=== PATIENT | female | born 1945 | race African-American/Black ===

== ENCOUNTER → 2017-03-26 | Day surgery (SDC) | payer MEDICARE, OTHER ==
[~2017-03-26] MED LIST: HYDROmorphone 2 MG/ML VIAL IV; LIDOCAINE 1% PF 2 ML VIAL. ID; LIDOCAINE 2% PF Vial for OR 5 ML VIAL.; MORPHINE SULFATE 2 MG/ML DISP.SYRIN. IV; ONDANSETRON PF 4 MG/2 ML VIAL. IV; PROCHLORPERAZINE 10 MG/2 ML VIAL. IV; PROPOFOL 40 ML IV; fentaNYL PF VIAL 100 MCG/2 ML VIAL IV
[2017-03-26] MEDS: IV RINGERS,LACTATED 1000ML 1,000 ML IV (11:45)
== END | disposition home or self-care (01) ==
LOC: ENDOS 11:05
DX: Z12.11 Encounter for screening for malignant neoplasm of colon (principal); K62.1 Rectal polyp; K64.0 First degree hemorrhoids; K57.30 Diverticulosis of large intestine without perforation or abscess without bleeding; K29.50 Unspecified chronic gastritis without bleeding; I10 Essential (primary) hypertension; E78.5 Hyperlipidemia, unspecified; K31.84 Gastroparesis; Z79.899 Other long term (current) drug therapy; Z80.0 Family history of malignant neoplasm of digestive organs
CPT/HCPCS: 43235; 88305; J2704

== ENCOUNTER → 2019-01-10 | Outpatient (CLI) | payer MEDICARE ==
[2017-03-26 13:09] VITALS: BP 167/75
[~2019-01-10] MED LIST changes: +AMLO2.5T5 PO; +CYCL10TA2 PO; +ESOM40CA PO; +GABA-585 PO; -HYDROmorphone 2 MG/ML VIAL IV; +IBUP-1060 PO; -LIDOCAINE 1% PF 2 ML VIAL. ID; -LIDOCAINE 2% PF Vial for OR 5 ML VIAL.; +LINZESS145 MCG PO; -MORPHINE SULFATE 2 MG/ML DISP.SYRIN. IV; -ONDANSETRON PF 4 MG/2 ML VIAL. IV; -PROCHLORPERAZINE 10 MG/2 ML VIAL. IV; -PROPOFOL 40 ML IV; +SIMV20TA18 PO; +TRIA1TAB3 PO; +VERA180T6 PO; -fentaNYL PF VIAL 100 MCG/2 ML VIAL IV
--- NOTE | 2019-01-10 15:53 | RAD ---
MR of the right shoulder HISTORY: Pain for 2 months. Limited range of motion. TECHNIQUE: Routine multiplanar sequences are obtained. FINDINGS: Acromioclavicular joint is mildly degenerative. Postsurgical changes at the rotator cuff and humeral head compatible with prior rotator cuff surgery. There is some bone hypertrophy and slight fragmentation at the greater tuberosity which appears chronic. Although rotator cuff is partially obscured by artifact, no evidence of significant recurrent supraspinatus or infraspinatus tendon rupture or retraction. Subscapularis tendinosis with some possible mild interstitial tearing. Small subdeltoid bursal effusion. This fluid also enters the acromioclavicular joint. Mild degenerative changes at the glenohumeral joint. Mild heterogeneity of signal within the superior labrum compatible with degeneration. No evidence of labral detachment or separation. Biceps tendinosis with partial tearing. Slight medial subluxation. No acute fracture. No aggressive bone destruction. No acute soft tissue abnormality. IMPRESSION: 1. Postsurgical changes of the rotator cuff with tendinosis. No significant recurrent supraspinatus or infraspinatus tendon rupture. Probable mild interstitial tearing of the subscapularis tendon. 2. Superior labral degeneration. 3. Biceps tendinosis with partial tearing and slight medial subluxation. Electronically signed by: Rafael Noland MD (01/10/2019 3:50 PM) [facility]
== END | disposition home or self-care (01) ==
LOC: MRI 14:20
PROVIDERS: ATTEND Orthopaedic Surgery
DX: S46.211A Strain of muscle, fascia and tendon of other parts of biceps, right arm, initial encounter (principal); M75.21 Bicipital tendinitis, right shoulder; M89.38 Hypertrophy of bone, other site; X58.XXXA Exposure to other specified factors, initial encounter; Y93.89 Activity, other specified; Y92.89 Other specified places as the place of occurrence of the external cause; Y99.8 Other external cause status
CPT/HCPCS: 73221

== ENCOUNTER 2019-02-08 07:15 | Day surgery (SDC) | payer MEDICARE ==
[~2019-02-08] VITALS: Ht 165.1 cm; Wt 68.9 kg
[~2019-02-08 07:15] MED LIST changes: +HYDROmorphone 2 MG/ML VIAL IV PRN; +IV RINGERS,LACTATED 1000ML 1,000 ML IV SCH; +LIDOCAINE 1% PF 2 ML VIAL. ID PRN; +MORPHINE SULFATE 2 MG/ML VIAL. IV PRN; +ONDANSETRON PF 4 MG/2 ML VIAL. IV PRN; +PROCHLORPERAZINE 10 MG/2 ML VIAL. IV PRN; -SIMV20TA18 PO; +SIMV20TA3 PO; +fentaNYL PF VIAL 100 MCG/2 ML VIAL IV PRN
--- NOTE | 2019-02-08 08:24 | EKG ---
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
[2019-02-08] MEDS ORDERED: ROCURONIUM 50 MG/5 ML VIAL. ONE (09:03)
[2019-02-08] MEDS ORDERED: fentaNYL PF VIAL 100 MCG/2 ML VIAL ONE ×3 (09:03→13:19)
[2019-02-08] MEDS ORDERED: LIDOCAINE 2% PF 5 ML VIAL. ONE (09:04)
[2019-02-08] MEDS ORDERED: ONDANSETRON PF 4 MG/2 ML VIAL. ONE (09:04)
[2019-02-08] MEDS ORDERED: GLYCOPYRROLATE 1 MG/5 ML VIAL. ONE (09:04)
[2019-02-08] MEDS ORDERED: DEXAMETHASONE SOD PHOS 4 MG/ML VIAL ONE (09:04)
[2019-02-08] MEDS ORDERED: NEOSTIGMINE METHYLSULFATE 5 MG/5 ML SYRINGE. ONE (09:04)
[2019-02-08] MEDS ORDERED: PROPOFOL 20 ML IV ONE (09:04)
[2019-02-08] MEDS ORDERED: EPINEPHrine VIAL 30 MG/30 ML VIAL ONE (10:42)
[2019-02-08] MEDS ORDERED: PHENYLEPHRINE 10 MG/ML VIAL. ONE (11:28)
[2019-02-08] MEDS ORDERED: BUPIVACAINE MPF 0.5% 30 ML VIAL. ONE (11:50)
--- NOTE | 2019-02-08 12:54 | DISCH ---
DISCHARGE INSTRUCTIONS Condition on Discharge Condition on Discharge: Stable Activity After Discharge Activity Instructions for Disc: Other, see below (sling for comfort to right shoulder and fine motor use of right hand with arm at side may eat do hair no lifting pushing pulling) Diet after Discharge Diet after Discharge: Regular Wound Incision Care Wound/Incision Care: Change dressing (remove dressing in 2 days may then shower) Contacting the after DC Call your doctor for: Concerns you may have Follow-Up Follow up with: Dr. Connor 1 week XIN CONNOR MD Feb 08, 2019 12:54
--- NOTE | 2019-02-08 13:01 | PDOC4 ---
Operative Note Operative Note Date of surgery: 02/08/2019 Preoperative diagnosis: Right shoulder pain with suspected biceps fraying, history of previous rotator cuff repair Postoperative diagnosis: Same with severe biceps fraying intact rotator cuff repair with only partial undersurface fraying and multiple loose bodies glenohumeral joint Operative procedure: Right shoulder arthroscopy removal multiple loose bodies and open biceps tenodesis Surgeon: Nikolas Assist: Mylene Anesthesia: Gen. Estimated blood loss: 10 mL Complications: None Operative indications: Please see my orthopedic clinic note for detailed operative indications and note that we covered addressing any pathological conditions found including the possibility of planned biceps tenodesis addressing any rotator cuff pathology or other pathology noted at the time of the procedure. I did emphasize I can't undo any degenerative condition in the shoulder and any ongoing symptoms from that would need to be managed symptomatically. There is a possibility of infection nerve or blood vessel damage medical or other anesthetic complications among others all her questions were answered she wishes to proceed with surgical evaluation and treatment. Operative text: Patient was identified procedure verified patient placed in the supine position on the operating table. After adequate amounts of general anesthesia were administered she was placed in the beachchair position and all bony prominences were well-padded and the right shoulder was prepped and draped in standard sterile fashion with the spider arm ann. After timeout was performed patient procedure identified and verified a standard posterior portal was established an anterior portal established using spinal needle localization and the shoulder joint was systematically examined. She was noted to have mild fraying of the undersurface of the supraspinatus but otherwise an intact rotator cuff repair after the significant fraying of the biceps anchor at the superior labrum were debrided back to stable tissue using arthroscopic shaver as well as the undersurface tear only partial thickness of the supraspinatus was debrided. Subscapularis appeared intact biceps was very frayed involving well over 25% of the tendon substance biceps tendon was tagged and tenotomized. She also had multiple loose bodies present in the inferior recess of the glenohumeral joint which were retrieved through the anterior portal and open incision was made anteriorly to complete the biceps tenodesis in the bicipital groove with a 2.9 juggernaut Biomet anchor. Biceps contour was maintained thorough irrigation carried out normal saline solution closure accomplished with buried Vicryl suture and subcuticular Monocryl sterile dressings were applied patient was placed in a sling extubated returned recovery room in stable condition having tolerated procedure well XIN CHAVARRIA MD Feb 08, 2019 13:01
[2019-02-08 13:26] VITALS: BP 164/70
== END 2019-02-08 14:00 | disposition home or self-care (01) ==
LOC: SURG 07:15
PROVIDERS: ATTEND Orthopaedic Surgery
DX: M66.321 Spontaneous rupture of flexor tendons, right upper arm (principal); M24.011 Loose body in right shoulder; I10 Essential (primary) hypertension; E78.00 Pure hypercholesterolemia, unspecified; K21.9 Gastro-esophageal reflux disease without esophagitis; K64.9 Unspecified hemorrhoids; H40.9 Unspecified glaucoma; F19.90 Other psychoactive substance use, unspecified, uncomplicated; F17.210 Nicotine dependence, cigarettes, uncomplicated; Z87.39 Personal history of other diseases of the musculoskeletal system and connective tissue; Z98.890 Other specified postprocedural states; Z98.42 Cataract extraction status, left eye; Z98.41 Cataract extraction status, right eye; Z90.710 Acquired absence of both cervix and uterus; Z72.89 Other problems related to lifestyle; Z96.1 Presence of intraocular lens
CPT/HCPCS: 23430; 29819; 93005; J0171; J0690; J1100; J2001; J2405; J2704; J2710; J3010; J3490; A7015; C1713; J7120

== ENCOUNTER 2019-10-25 00:53 | Inpatient (IN) | payer MEDICARE ==
[~2019-10-25] VITALS: Ht 165.1 cm; Wt 68.0 kg
[~2019-10-25 00:53] MED LIST changes: -HYDROmorphone 2 MG/ML VIAL IV PRN; -IV RINGERS,LACTATED 1000ML 1,000 ML IV SCH; -LIDOCAINE 1% PF 2 ML VIAL. ID PRN; -MORPHINE SULFATE 2 MG/ML VIAL. IV PRN; -ONDANSETRON PF 4 MG/2 ML VIAL. IV PRN; -PROCHLORPERAZINE 10 MG/2 ML VIAL. IV PRN; +SIMV20TA18 PO; -SIMV20TA3 PO; -fentaNYL PF VIAL 100 MCG/2 ML VIAL IV PRN
[2019-10-25 01:21] LABS: BILIRUBIN,URINE NEGATIVE (NEG); CLARITY,URINE CLEAR; COLOR,URINE YELLOW; NITRITE,URINE NEGATIVE (NEG); PH,URINE 7.5 (<5.0-8.0); PROTEIN,URINE NEGATIVE (NEG-TRACE); UROBILINOGEN,URINE 0.2 mg/dL (0.2 mg/dL)
[2019-10-25 01:25] LABS: AMORPHOUS SEDIMENT,UR PRESENT /HPF; BACTERIA,URINE 0 /HPF (0-FEW); RBC,URINE OCC /HPF (0-2); SQUAMOUS EPITHELIAL CELL,UR FEW /LPF; WBC,URINE OCC /HPF (0-4)
[2019-10-25 01:28] LABS: BASO # 0.1 x10^3/uL (0.0-0.2); BASO % 1 % (0-3); EOS % 0 % (0-3); HEMATOCRIT 41.8 % (36.0-47.0); HEMOGLOBIN 14.5 g/dL (12.0-15.5); LYMPH # 2.1 x10^3/uL (1.0-4.8); LYMPH % 26 % (24-48); MEAN CORPUSCULAR HEMOGLOBIN 30 pg (25-35); MEAN CORPUSCULAR HGB CONC 35 g/dL (31-37); MEAN CORPUSCULAR VOLUME 88 fL (79-100); MONO # 0.4 x10^3/uL (0.0-1.1); MONO % 5 % (0-9); NEUT # 5.5 x10^3/uL (1.8-7.7); NEUT % 67 % (31-73); PLATELET COUNT 300 x10^3/uL (140-400); RED BLOOD COUNT 4.78 x10^6/uL (3.50-5.40); RED CELL DISTRIBUTION WIDTH 13.7 % (11.5-14.5); WHITE BLOOD COUNT 8.1 x10^3/uL (4.0-11.0)
[2019-10-25] MEDS ORDERED: MECLIZINE HCL 12.5 MG TABLET. PO ONE (01:30)
[2019-10-25] MEDS ORDERED: diazePAM 2 MG TABLET PO ONE (01:30)
--- NOTE | 2019-10-25 01:31 | PHYS DOC ---
General Adult EDM: Chief Complaint: DIZZY/LIGHT HEADED HPI: HPI: Patient is a 74 year old female who presents to the ED with a chief complaint of dizziness. Patient states that she went to bed and when she woke up she sat up in her bed and felt like the whole room was spinning. Patient also had episode of vomiting and felt lightheaded. Patient denies headache, chest pain, fever, chills, shortness of breath. Patient denies previous symptoms like this. Review of Systems: Review of Systems: Constitutional: Denies fever or chills. [] Eyes: Denies change in visual acuity. [] HENT: Denies nasal congestion or sore throat. [] Respiratory: Denies cough or shortness of breath. [] Cardiovascular: Denies chest pain or edema. [] GI: Denies abdominal pain, nausea, vomiting, bloody stools or diarrhea. [] : Denies dysuria. [] Neurologic: Complains of dizziness and vertigo-like symptoms Heart Score: Risk Factors: Risk Factors: DM, Current or recent (<one month) smoker, HTN, HLP, family history of CAD, obesity. Risk Scores: Score 0 - 3: 2.5% MACE over next 6 weeks - Discharge Home Score 4 - 6: 20.3% MACE over next 6 weeks - Admit for Clinical Observation Score 7 - 10: 72.7% MACE over next 6 weeks - Early Invasive Strategies Current Medications: Current Medications Medications (Trade) Dose Ordered Sig/Josh Start Time Stop Time Status Last Admin Dose Admin Diazepam (Valium) 2 mg 1X ONCE 10/25/19 01:30 10/25/19 01:31 Meclizine HCl (Antivert) 25 mg 1X ONCE 10/25/19 01:30 10/25/19 01:31 Allergies: Allergies: Allergies Coded Allergies Type Severity Reaction Last Updated Verified No Known Drug Allergies 02/04/19 No Physical Exam: PE: Constitutional: Well developed, well nourished, no acute distress, non-toxic appearance. HENT: Normocephalic, atraumatic Eyes: EOMI Neck: Normal range of motion, Supple Cardiovascular:Heart rate regular rhythm Lungs & Thorax: Bilateral breath sounds clear to auscultation [] Abdomen: Bowel sounds normal, soft, no tenderness Extremities: No tenderness, ROM intact Neurologic: Alert and oriented X 3, no focal neuro deficits on exam Current Patient Data: Labs: Laboratory Tests Test 10/25/19 01:10 Urine Collection Type Unknown Urine Color Yellow Urine Clarity Clear Urine pH 7.5 (<5.0-8.0) Urine Specific [place] 1.010 (1.000-1.030) Urine Protein Negative mg/dL (NEG-TRACE) Urine Glucose (UA) Negative mg/dL (NEG) Urine Ketones (Stick) Negative mg/dL (NEG) Urine Blood Negative (NEG) Urine Nitrite Negative (NEG) Urine Bilirubin Negative (NEG) Urine Urobilinogen Dipstick 0.2 mg/dL (0.2 mg/dL) Urine Leukocyte Esterase Negative (NEG) Urine RBC Occ /HPF (0-2) Urine WBC Occ /HPF (0-4) Urine Squamous Epithelial Cells Few /LPF Urine Amorphous Sediment Present /HPF Urine Bacteria 0 /HPF (0-FEW) Urine Mucus Slight /LPF EKG: EKG: [EKG interpretation 1:45 AM on 10/25/2019 HR: 52 Sinus rhythm Regular intervals Normal axis Nonspecific ST changes ] Radiology/Procedures: Radiology/Procedures: [] Impression: CT HEAD Findings: Mild nonspecific periventricular hypoattenuation, most commonly seen with chronic small vessel ischemic disease. Calcified atherosclerosis of the bilateral cavernous and paraclinoid internal carotid arteries and intracranial vertebral arteries. No intra- or extra-axial mass or fluid collection. No acute hemorrhage. The ventricles are normal in size, shape, and morphology. The ventura-white matter junction is normal. The subarachnoid cisterns are patent. The visualized paranasal sinuses are normal. The visualized portions of the orbits and globes are normal. The mastoid air cells are clear. The tool maintenance technician topogram shows no lytic lesion or fracture. Impression: No acute intracranial process. Mild chronic small vessel ischemic disease. Course & Med Decision Making: Course & Med Decision Making Pertinent Labs and Imaging studies reviewed. (See chart for details) Patient states that when she moves her eyes from side to side her symptoms are getting worse. I have ordered patient to get Antivert and Valium in the ER. Also ordered labs, CT head, EKG, troponin, UA. UA does not show UTI. Labs are within normal limits. Patient states that she is feeling better after the medication. Got the patient to walk to the bathroom and patient almost fell. States that the dizziness is back when she moves her head from side to side Discussed results and plan of care with patient and family. Discussed case with Dr. Fernandez who accepts admission. Sun Disclaimer: Sun Disclaimer: This electronic medical record was generated, in whole or in part, using a voice recognition dictation system. Departure Departure Impression: Primary Impression: Dizziness Additional Impression: Vertigo Disposition: 09 ADMITTED INPATIENT Admitting Physician: Fariba Fernandez Condition: GOOD Referrals: FARIBA FERNANDEZ MD (PCP) Justicifation of Admission Dx: Justifications for Admission: Justification of Admission Dx: Yes Comments: DIZZINESS VERTIGO CAILIN WILKINSON DO Oct 25, 2019 01:31
[2019-10-25] MEDS ORDERED: ONDANSETRON PF 4 MG/2 ML VIAL. IVP ONE (02:00)
--- NOTE | 2019-10-25 02:05 | RAD ---
CT HEAD WO CONTRAST Date: 10/25/2019 1:15 AM Clinical Indication: Reason: DIZZINESS / Spl. Instructions: / History: Comparison: None. Technique: 5 mm axial tomographic images were obtained of the head without contrast. These were viewed on brain and bone windows. One or more of the following dose reduction techniques were utilized: Automated exposure control (AEC), Adjustment of mA and/or kV according to patient size, Use of iterative reconstruction technique such as ASiR, CT scan done according to ALARA and image gently/image wisely Findings: Mild nonspecific periventricular hypoattenuation, most commonly seen with chronic small vessel ischemic disease. Calcified atherosclerosis of the bilateral cavernous and paraclinoid internal carotid arteries and intracranial vertebral arteries. No intra- or extra-axial mass or fluid collection. No acute hemorrhage. The ventricles are normal in size, shape, and morphology. The ventura-white matter junction is normal. The subarachnoid cisterns are patent. The visualized paranasal sinuses are normal. The visualized portions of the orbits and globes are normal. The mastoid air cells are clear. The bmet topogram shows no lytic lesion or fracture. Impression: No acute intracranial process. Mild chronic small vessel ischemic disease. Electronically signed by: Hansel Rodriguez MD (10/25/2019 2:02 AM) [facility]
[2019-10-25 03:26] LABS: CALCIUM 8.9 mg/dL (8.5-10.1); CREATININE 1.1 mg/dL (0.6-1.0); GFR 58.9; POTASSIUM 3.3 mmol/L (3.5-5.1)
[2019-10-25 03:32] LABS: TOTAL BILIRUBIN 0.2 mg/dL (0.2-1.0); TOTAL PROTEIN 7.9 g/dL (6.4-8.2)
[2019-10-25] MEDS ORDERED: POTASSIUM CHLORIDE 20 MEQ TABLET.ER. PO ONE (04:00)
[2019-10-25] MEDS ORDERED: cloNIDine HCL 0.1 MG TABLET PO ONE (05:00)
[2019-10-25 05:02] VITALS: BP 175/70
[2019-10-25 07:53] VITALS: BP 117/51
[2019-10-25] MEDS ORDERED: CYCLOBENZAPRINE 10 MG TABLET. PO PRN (08:15)
[2019-10-25] MEDS ORDERED: MECLIZINE HCL 12.5 MG TABLET. PO PRN (08:15)
[2019-10-25] MEDS ORDERED: GABAPENTIN 100 MG CAPSULE. PO PRN (08:15)
[2019-10-25] MEDS ORDERED: PANTOPRAZOLE 40 MG TABLET.DR. PO SCH (08:15)
--- NOTE | 2019-10-25 08:19 | PDOC ---
Provider Note Provider Note [id number] Justicifation of Admission Dx: Justifications for Admission: Justification of Admission Dx: Yes FARIBA FERNANDEZ MD Oct 25, 2019 08:19
--- NOTE | 2019-10-25 08:36 | HP ---
ADMIT DATE: 10/25/2019 CHIEF COMPLAINT: Dizziness. HISTORY OF PRESENT ILLNESS: A 74-year-old black female with history of PAD and hypertension, came in with a day or two episodic dizziness that sounds like positional vertigo. She had nausea and vomiting associated with that, but no headache, fever, chills, neurologic symptoms or other complaints. CT head was negative and she continued to have some vertigo in the ER and was admitted, but she feels better at this time. PAST MEDICAL HISTORY: Well documented in the old record. MEDICATIONS: Include amlodipine and hydrochlorothiazide. ALLERGIES: No drug allergies are known. 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 SOCIAL HISTORY: Still a smoker about half pack a day, smoked most of her adult life. She is , has family in the area. Nondrinker. FAMILY HISTORY: Unremarkable. REVIEW OF SYSTEMS: No other complaints. OBJECTIVE: ENT: No nystagmus. Pupils are round and reactive. EOMs full, otherwise normal. NECK: No carotid bruits, nodes or masses. LUNGS: Clear with no tachypnea. CARDIOVASCULAR: Regular rate, bradycardia about 50-55, normal for her. No murmur. ABDOMEN: Soft, benign and nontender. EXTREMITIES: Reduced pedal pulses bilaterally, 2-3+ clubbing, no edema. NEUROLOGIC: Cranial nerves appeared to be intact as was mentation and limited some motor and sensory exam. No tremors were noted. She was not ambulated to lessen the vertigo, but no cerebellar signs were noted. ASSESSMENT: Symptoms consistent with positional vertigo. She has controlled hypertension, peripheral artery disease, chronic tobacco abuse, and chronic obstructive pulmonary disease. PLAN: Continue p.r.n. meclizine for now. She may go home later today if she feels better otherwise we will just wait and see how she does. No further testing and plan at this point. FARIBA FERNANDEZ MD DR: RG/erich JOB#: [id number] / [id number]
[2019-10-25] MEDS ORDERED: amLODIPine BESYLATE 5 MG TABLET PO SCH (09:00)
[2019-10-25] MEDS ORDERED: TRIAMTERENE/HCTZ 37.5/25MG TABLET. PO SCH (09:00)
--- NOTE | 2019-10-25 09:06 | EKG ---
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
[2019-10-25 11:23] VITALS: BP 108/55
--- NOTE | 2019-10-25 12:20 | NUR ---
Notified Dr. Velazquez that patient wants to go home, bradycardic on the monitor at 40bpm, currently asymptomatic. This nurse was instructed that patient can be discharged, patient's bradycardia being ff up at clinic.
--- NOTE | 2019-10-25 13:06 | DS ---
DATE OF DISCHARGE: HOSPITAL SUMMARY: The patient came in with what sounds like classic positional vertigo with sudden onset. She had a CT scan in the ER, which was clear as well as her lab work. When she was unable to shake the vertigo, she was admitted. She was monitored and had no further vertigo, though she did have some sinus bradycardia in the 40s without symptoms from that. She is comfortable to be followed as an outpatient at this point. FINAL DIAGNOSES: 1. Acute positional vertigo, improved. 2. Sinus bradycardia, etiology undetermined. 3. Hypertension, chronic. 4. Tobacco abuse. OPERATIONS, PROCEDURES, COMPLICATIONS, CONSULTATIONS: None. DISPOSITION: Continue all meds the same. Office followup with Dr. Velazquez in 1 week regarding the bradycardia to consider monitor of thyroid testing, etc. Meclizine to be used t.i.d. p.r.n. for vertigo. PROGNOSIS: Good. FARIBA VELAZQUEZ MD DR: RG/erich JOB#: [id number] / [id number]
--- NOTE | 2019-10-25 13:08 | NUR ---
Discharge Note: WILBERTO LYNN Discharge instructions and discharge home medications reviewed with patient and a copy given. All questions have been answered and understanding verbalized. The following instructions and handouts were given: Mecliziine 25 mg/tab q6 hour prn for dizziness. Patient advised can buy the med over the ounter. Take home meds as directed. Watch out for severe dizziness, severe weakness, loss of consciousness. Follow up with Dr. Velazquez in a week. Discontinued lines and drains:peripheral IV intact, patient tolerated removal, no complications noted. Patient discharged to home with self care via wheelchair at 1251.
--- NOTE | 2019-10-25 14:18 | NUR ---
SW following. Spoke with RN and reviewed chart. Pt from home and will return at discharge. Pt on room air and oral medications. RN reported no SW needs at this time.
== END 2019-10-25 12:51 | disposition home or self-care (01) | DRG 149 ==
LOC: ER 00:53 → 6 SOUTH 03:30
PROVIDERS: ADMIT Family Medicine; ATTEND Family Medicine
DX: H81.10 Benign paroxysmal vertigo, unspecified ear (principal); R00.1 Bradycardia, unspecified; F17.200 Nicotine dependence, unspecified, uncomplicated; I10 Essential (primary) hypertension; I73.9 Peripheral vascular disease, unspecified; J44.9 Chronic obstructive pulmonary disease, unspecified
CPT/HCPCS: 36415; 70450; 80053; 81001; 83605; 84484; 85025; 93005; 96374; J2405; 99285-25; G0378; J8597